=== PATIENT | male | born 1985 | race American Indian/Alaskan Native ===

== ENCOUNTER 2016-08-23 04:19 | Emergency (ER) | payer MEDICAID, OTHER ==
[2016-08-23 04:43] VITALS: O2SAT 96
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
[2016-08-23 09:36] VITALS: BP 142/92; PULSE 74; RESP 18; TEMP 98.7
--- NOTE | 2016-08-23 10:57 | RAD ---
PROCEDURE: Left Ankle Radiographs. HISTORY: Pain COMPARISON: None FINDINGS: BONES: Bone alignment and mineralization are normal. No acute fracture or bone destruction. JOINTS: Normal. Ankle mortise maintained. Talar dome intact SOFT TISSUES: Normal. OTHER FINDINGS: None. IMPRESSION: Normal examination.
== END 2016-08-23 09:40 | disposition home or self-care (01) ==
LOC: C.ER 04:19
DX: S93.402A Sprain of unspecified ligament of left ankle, initial encounter (principal); Y09 Assault by unspecified means; Y92.9 Unspecified place or not applicable; G89.29 Other chronic pain; M54.5 Low back pain

== ENCOUNTER 2016-08-30 21:35 | Emergency (ER) | payer MEDICAID, OTHER ==
[2016-08-30 21:43] VITALS: BP 138/89; PULSE 80; RESP 18; TEMP 97.5; O2SAT 98
--- NOTE | 2016-08-30 21:52 | C.PDOC ---
History Of Present Illness 31 y/o male presents to the ED with complaints of worsening left ankle pain x2 days. Pt injured ankle, unclear mechanism 2 days ago, pt seen at [facility], pt unable to say if xray done, says he took off the splint/dressing they put on because it hurt him. pt iced ankle only once today, has not elevated it, is ambulating on it. Pt did not take any medications for pain. Denies weakness, numbness or any other complaints. Time Seen by Provider: 08/30/16 21:44 Chief Complaint (Nursing): Lower Extremity Problem/Injury History Per: Patient History/Exam Limitations: no limitations Onset/Duration Of Symptoms: Days Current Symptoms Are (Timing): Worse Severity: Moderate Recent travel outside of the [place]: No Past Medical History Reviewed: Historical Data, Nursing Documentation, Vital Signs Vital Signs: Last Vital Signs Temp 97.5 F L 08/30/16 21:40 Pulse 80 08/30/16 21:40 Resp 18 08/30/16 21:40 BP 138/89 08/30/16 21:40 Pulse Ox 98 08/30/16 22:17 - Medical History PMH: Anxiety Denies: Chronic Kidney Disease Family History: States: Unknown Family Hx - Social History Hx Tobacco Use: No Hx Alcohol Use: No Hx Substance Use: No - Immunization History Hx Tetanus Toxoid Vaccination: No Hx Influenza Vaccination: No Hx Pneumococcal Vaccination: No Review Of Systems Except As Marked, All Systems Reviewed And Found Negative. Constitutional: Negative for: Fever, Chills Musculoskeletal: Positive for: Other (left ankle pain) Neurological: Negative for: Weakness, Numbness Physical Exam - Physical Exam Appears: Non-toxic, No Acute Distress Skin: Warm, Dry, No Rash Head: Atraumatic, Normacephalic Extremity: Normal ROM, Tenderness (left lateral and medial malleolus tenderness and swelling), Capillary Refill (<2 seconds), No Deformity, Swelling (bilateral left malleoli) Pulses: Left Dorsalis Pedis: Normal, Right Dorsalis Pedis: Normal Neurological/Psych: Oriented x3, Normal Speech, Normal Cognition, Normal Motor, Normal Sensation ED Course And Treatment O2 Sat by Pulse Oximetry: 98 (room air) Pulse Ox Interpretation: Normal Progress Note: Plan: XR left ankle, motrin Medical Decision Making Medical Decision Making: xray reviewed; no acute fracture noted. card dressing put on left foot and ankle, and pt given RICE instructions and crutch instructions. pt reluctant to use crutches because of injury to right palm; explained to pt that weight bearing not recommmended, pt given ibuprofen for pain; per tn arcade games mechanic, pt refilled rx on 08/12 for one month of medication. Review of [place] FINANCIAL PLANNING ANALYST: Filled ID Written Drug QTY Days Prescriber Rx # Pharmacy * Refills MME/D Pymt Type FINANCIAL PLANNING ANALYST 08/12/2016 3 08/12/2016 OXYCODONE-ACETAMINOPHEN 10-325 90.0 30 [facility] [id number] [facility] ([id number]) 0 45.0 Private Pay [place] 06/25/2016 3 06/25/2016 OXYCODONE-ACETAMINOPHEN 10-325 90.0 30 [facility] [place] [id number] [facility] ([id number]) 0 45.0 Comm Ins [place] 05/29/2016 3 05/29/2016 OXYCODONE-ACETAMINOPHEN 10-325 90.0 30 [facility] [place] [id number] [facility] ([id number]) 0 45.0 [place] 04/29/2016 3 04/29/2016 OXYCODONE-ACETAMINOPHEN 10-325 90.0 30 [facility] [place] [id number] [facility] ([id number]) 0 45.0 [place] 04/13/2016 3 04/13/2016 OXYCODONE-ACETAMINOPHEN 5-325 15.0 2 [facility] [id number] [facility] ([id number]) 0 56.25 Comm Ins [place] 04/03/2016 3 04/03/2016 OXYCODONE-ACETAMINOPHEN 10-325 90.0 30 [facility] [place] [id number] [facility] ([id number]) 0 45.0 [place] 03/20/2016 3 03/20/2016 TRAMADOL HCL 50 MG TABLET 10.0 2 Y[facility] [id number] [facility] ([id number]) 0 25.0 Comm Ins [place] Disposition Counseled Patient/Family Regarding: Studies Performed, Diagnosis, Need For Followup - Disposition Referrals: Vikram Lamb MD [Staff Provider] - Disposition: HOME/ ROUTINE Disposition Time: 22:14 Condition: STABLE Additional Instructions: NO weight bearing, Use crutches at all times. Elevsate foot when possible. Take ibuprofen for pain every 6 hours (with food). Follow up with Dr Lamb as soon as possible. Prescriptions: Ibuprofen [Motrin] 600 mg PO QID #30 tab Instructions: Ankle Sprain (ED) - Clinical Impression Clinical Impression: Left ankle sprain - PA / MATERIAL REQUIREMENTS WORKER / Resident Statement MD/DO has reviewed & agrees with the documentation as recorded. - Scribe Statement The provider has reviewed the documentation as recorded by the Scribmony Corrigan All medical record entries made by the Keryribmony were at my direction and personally dictated by me. I have reviewed the chart and agree that the record accurately reflects my personal performance of the history, physical exam, medical decision making, and the department course for this patient. I have also personally directed, reviewed, and agree with the discharge instructions and disposition.
--- NOTE | 2016-08-30 21:55 | C.PDOC ---
Time Seen by Provider: 08/30/16 21:44 Chief Complaint (Nursing): Lower Extremity Problem/Injury Past Medical History Vital Signs: Last Vital Signs Temp 97.5 F L 08/30/16 21:40 Pulse 80 08/30/16 21:40 Resp 18 08/30/16 21:40 BP 138/89 08/30/16 21:40 Pulse Ox 98 08/30/16 21:40 - Medical History PMH: Anxiety Denies: Chronic Kidney Disease Family History: States: Unknown Family Hx - Social History Hx Tobacco Use: No Hx Alcohol Use: No Hx Substance Use: No - Immunization History Hx Tetanus Toxoid Vaccination: No Hx Influenza Vaccination: No Hx Pneumococcal Vaccination: No ED Course And Treatment O2 Sat by Pulse Oximetry: 98 Medical Decision Making Medical Decision Making: reveiw of pt medications from product marketing programs manager Filled ID Written Drug QTY Days Prescriber Rx # Pharmacy * Refills MME/D Pymt Type BUTTON FACING MACHINE OPERATOR 08/12/2016 3 08/12/2016 OXYCODONE-ACETAMINOPHEN 10-325 90.0 30 DU [facility]ELE[place] [id number] [facility] ([id number]) 0 45.0 Private Pay MD 06/25/2016 3 06/25/2016 OXYCODONE-ACETAMINOPHEN 10-325 90.0 30 DU [place] [id number] [facility] ([id number]) 0 45.0 Comm Ins [place] 05/29/2016 3 05/29/2016 OXYCODONE-ACETAMINOPHEN 10-325 90.0 30 DU [place] [id number] [facility] ([id number]) 0 45.0 Comm Ins [place] 04/29/2016 3 04/29/2016 OXYCODONE-ACETAMINOPHEN 10-325 90.0 30 DU [place]ELE[place] [id number] [facility] ([id number]) 0 45.0 Comm Ins [place] 04/13/2016 3 04/13/2016 OXYCODONE-ACETAMINOPHEN 5-325 15.0 2 [place] MATHEW [id number] [facility] ([id number]) 0 56.25 Comm Ins MD 04/03/2016 3 04/03/2016 OXYCODONE-ACETAMINOPHEN 10-325 90.0 30 DU [place] [id number] [facility] ([id number]) 0 45.0 Comm Ins MD 03/20/2016 3 03/20/2016 TRAMADOL HCL 50 MG TABLET 10.0 2 YA ALFIE [id number] [facility] ([id number]) 0 25.0 Comm Ins MD 03/06/2016 3 03/06/2016 OXYCODONE-ACETAMINOPHEN 10-325 90.0 30 DU MAR[place]ELE[place] [id number] [facility] ([id number]) 0 45.0 Comm Ins [place] 03/03/2016 3 03/03/2016 OXYCODONE-ACETAMINOPHEN 5-325 15.0 2 RI MATHEW [id number] [facility] ([id number]) 0
--- NOTE | 2016-08-31 07:56 | RAD ---
PROCEDURE: Left Ankle Radiographs. HISTORY: bilateral malleolar swelling COMPARISON: 08/23/2016 FINDINGS: BONES: Normal. No fracture. JOINTS: Normal. No osteoarthritis. Ankle mortise maintained. Talar dome intact SOFT TISSUES: Persistent mild soft tissue swelling -albeit slightly less dense appearing OTHER FINDINGS: None. IMPRESSION: No fracture appreciated.
== END 2016-08-30 22:24 | disposition home or self-care (01) ==
LOC: C.ER 21:35
DX: S93.402D Sprain of unspecified ligament of left ankle, subsequent encounter (principal); X58.XXXD Exposure to other specified factors, subsequent encounter

== ENCOUNTER 2016-09-06 08:01 | Emergency (ER) | payer MEDICAID ==
[2016-09-06 08:06] VITALS: O2SAT 100; BMI 22.3
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
[2016-09-06 09:49] VITALS: BP 132/80; PULSE 84; RESP 16; TEMP 98.1
--- NOTE | 2016-09-06 10:26 | RAD ---
PROCEDURE: Radiographs of the Lumbar Spine. HISTORY: pain COMPARISON: No prior. FINDINGS: BONES: No acute compression fractures no retropulsed fragments. Vertebral bodies exhibit normal stature and alignment. Facets normally aligned. DISC SPACES: Disc space heights maintained. . Facet joints appear slightly overgrown L5-S1, for L5 and to a lesser degree L3-L4 levels. OTHER FINDINGS: None. IMPRESSION: No acute fractures.
== END 2016-09-06 09:49 | disposition home or self-care (01) ==
LOC: C.ER 08:01
DX: S39.012A Strain of muscle, fascia and tendon of lower back, initial encounter (principal); Y08.89XA Assault by other specified means, initial encounter

== ENCOUNTER 2016-10-05 01:47 | Emergency (ER) | payer SELFPAY ==
[2016-10-05 01:47] VITALS: BMI 22.3
[2016-10-05 01:54] VITALS: RESP 20; O2SAT 97
[2016-10-05] MEDS ORDERED: Naproxen 550 mg Tab PO STA (02:46)
[2016-10-05] MEDS ORDERED: Naproxen 550 mg Tab PO ONE (02:53)
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
[2016-10-05 04:03] VITALS: BP 128/70; PULSE 80; TEMP 98
== END 2016-10-05 04:00 | disposition home or self-care (01) ==
LOC: C.ER 01:47
DX: G89.29 Other chronic pain (principal); M25.552 Pain in left hip; S71.002D Unspecified open wound, left hip, subsequent encounter; W34.00XD Accidental discharge from unspecified firearms or gun, subsequent encounter; F19.10 Other psychoactive substance abuse, uncomplicated